=== PATIENT | male | born 1995 | race African-American/Black ===

== ENCOUNTER 2017-11-23 12:54 | Emergency (ER) | payer OTHER ==
[~2017-11-23] VITALS: Ht 182.9 cm; Wt 141.2 kg
[2017-11-23 13:10] VITALS: TEMP 36.8; Ht 182.9 cm; Wt 141.2 kg
[2017-11-23] MEDS ORDERED: CEPH500C PO (13:29)
[2017-11-23 13:33] VITALS: BP 147/67; PULSE 88; O2SAT 97
[2017-11-23] MEDS ORDERED: DIPHTHERIA/TETANUS/PERTUSSIS 0.5 ML SYR/VIAL ONE (13:36)
[2017-11-23] MEDS ORDERED: DIPHTHERIA/TETANUS/PERTUSSIS 0.5 ML SYR/VIAL IM. ONE (13:45)
--- NOTE | 2017-11-23 18:01 | EMERGENCY ROOM VISIT NOTE ---
History First contact with patient: 13:17 Chief Complaint: PUNCTURE WOUND Stated Complaint: LEFT FOOT STEPPED ON DANNI NAIL Nursing Triage Summary: pt stepped on wooden nail about 1 hour ago fb no longer in foot left foot affected reports never having tetanus injection before History of Present Illness The patient is a 22 year old male who presents to the Emergency Room with complaints of a puncture wound to the left foot. Approximate 1 hour ago, the patient reports stepping on a danni nail. He was barefooted at the time, walking across to his porch. The patient now rates his discomfort a 6 out of 10. Tetanus immunization is up-to-date. Review of Systems 10 system review was performed and was negative except for pertinent positives and negatives as indicated in history of present illness Past Medical/Surgical History Medical Problems: (1) No significant past medical history Surgical Problems: (1) No history of previous surgery Family History Unremarkable Social History Smoking Status: Current Some Day Smoker Alcohol Use: occasionally Marital Status: Housing Status: lives with family Occupation Status: employed Current/Historical Medications Scheduled Cephalexin Monohydrate (Keflex), 500 MG PO QID Physical Exam Vital Signs Date Time Temp Pulse Resp B/P (MAP) Pulse Ox O2 Delivery O2 Flow Rate FiO2 11/23/17 13:33 88 16 147/67 97 Room Air 11/23/17 13:10 36.8 98 20 167/98 99 Room Air Physical Exam CONSTITUTIONAL: Obese male, alert and oriented X 3 with positive affect. Patient does not appear in any acute distress. HEENT: Normocephalic, atraumatic. Pupils equal, round and reactive. NECK: Full active range of motion without discomfort. MUSCULOSKELETAL: Examination shows a small puncture wound to the plantar forefoot. He has no worsening pain with passive flexion or extension of the toes. Capillary refill is less than 2 seconds. INTEGUMENTARY: No rash or other significant dermatologic conditions noted. NEUROLOGIC: No focal neurologic deficits noted. Left foot and toes are sensory intact. Medical Decision & Procedures Medications Administered Medications (Trade) Dose Ordered Sig/Praveen Route Start Time Stop Time Status Last Admin Dose Admin Diphtheria/ Pertussis/Tetanus Vacc (Adacel Inj) 0.5 ml ONCE ONCE IM. 11/23/17 13:45 11/23/17 13:46 DC 11/23/17 13:38 0.5 ML ED Course Patient history and physical exam were performed. Nurse's notes were reviewed. Vital signs were reviewed, showing an elevated blood pressure 167/98. Patient does not appear in any acute distress. The patient will be treated with Keflex antibiotics. He was instructed to watch for any worsening signs consistent with infection. He was also encouraged to limit weightbearing over the next few days. Ibuprofen or Tylenol as needed for pain. The patient was happy with plan of care, voiced understanding of all discharge instructions, and denied any significant pain at the conclusion of my exam. I did recommend that the patient follow-up with his PCP for blood pressure recheck. Medical Decision Blood Pressure Screening Patient's blood pressure: Elevated blood pressure Blood pressure disposition: Referred to PCP Impression Primary Impression: Puncture wound of foot Additional Impression: Elevated blood pressure reading Departure Information Dispostion Home / Self-Care Condition GOOD Prescriptions Cephalexin Monohydrate (Keflex) 500 Mg Cap 500 MG PO QID for 7 Days, #28 CAP Prov: Gaurav Romero PA 11/23/17 Referrals No Doctor, Assigned (PCP) Forms HOME CARE DOCUMENTATION FORM, IMPORTANT VISIT INFORMATION Patient Instructions My [facility] Additional Instructions Complete all Keflex antibiotics as prescribed. Minimize weight on foot over the next few days. Ibuprofen or Tylenol as needed for pain. Return for any developing infection, worsening pain, red streaks or fever. Problem Qualifiers
== END 2017-11-23 13:41 | disposition home or self-care (01) ==
LOC: C.EDB 12:55 → C.EDD 13:41
DX: S91.332A Puncture wound without foreign body, left foot, initial encounter (principal); W45.0XXA Nail entering through skin, initial encounter; F17.210 Nicotine dependence, cigarettes, uncomplicated; E66.9 Obesity, unspecified; R03.0 Elevated blood-pressure reading, without diagnosis of hypertension; Z23 Encounter for immunization